=== PATIENT | male | born 1990 | race Caucasian/White ===

== ENCOUNTER 2017-02-09 12:53 | Emergency (ER) | payer OTHER ==
[2017-02-09] MEDS ORDERED: CYCLOBENZAPRINE 10 MG TABLET PO STA (13:16)
[2017-02-09] MEDS ORDERED: KETOROLAC 60 MG/2 ML VIAL IM STA (13:16)
[2017-02-09] MEDS ORDERED: DEXAMETHASONE 10 MG/ML VIAL PO STA (13:16)
[2017-02-09] MEDS ORDERED: CYCLOBENZAPRINE 10 MG TABLET PO ONE (13:20)
[2017-02-09] MEDS ORDERED: CHERRY SYRUP 10 ML UDC PO ONE (13:21)
[2017-02-09] MEDS ORDERED: KETOROLAC 60 MG/2 ML VIAL ONE (13:21)
[2017-02-09] MEDS ORDERED: DEXAMETHASONE 10 MG/ML VIAL ONE (13:21)
--- NOTE | 2017-02-09 13:21 | ED Physician Documentation ---
PD HPI BACK PAIN - Stated complaint Stated Complaint: LOWER BACK PX - Chief complaint Chief Complaint: Back Pain - History obtained from History obtained from: Patient - History of Present Illness Timing - onset: Today Timing - duration: Hours (1) Timing - details: Abrupt onset Pain level max: 8 Pain level now: 7 Location: Lower, Left Quality: Pain, Spasm, Sharp, Similar to prior episodes Associated symptoms: No: Fever, Weakness, Numbness, Incontinent of urine, Unable to urinate, Hematuria, Incontinent of stool Improves with: Rest Worsened by: Movement Contributing factors: Lifting (weighted squats at the gym) Similar symptoms before: Diagnosis (bulging discs in his back) Recently seen: Not recently seen Review of Systems Constitutional: denies: Fever, Chills Nose: denies: Rhinorrhea / runny nose, Congestion Respiratory: denies: Cough GI: denies: Abdominal Pain, Nausea, Vomiting, Diarrhea Skin: denies: Rash Musculoskeletal: denies: Neck pain Neurologic: denies: Focal weakness, Numbness, Confused, Altered mental status, Headache PD PAST MEDICAL HISTORY - Past Medical History Past Medical History: Yes Musculoskeletal: Chronic back pain - Past Surgical History Past Surgical History: Yes - Present Medications Home Medications: Ambulatory Orders Medication Instructions Recorded Confirmed Cyclobenzaprine [Flexeril] 10 mg PO TID PRN #20 tablet 02/09/17 Ibuprofen [Motrin] 800 mg PO Q8H PRN #30 tablet 02/09/17 - Allergies Allergies/Adverse Reactions: Allergies Allergy/AdvReac Type Severity Reaction Status Date / Time No Known Drug Allergies Allergy Verified 02/09/17 13:04 - Social History Does the pt smoke?: Yes Smoking Status: Current every day smoker Does the pt drink ETOH?: Yes Does the pt have substance abuse?: No - Immunizations Immunizations are current?: Yes - POLST Patient has POLST: No PD ED PE NORMAL - Vitals Vital signs reviewed: Yes - General General: Alert and oriented X 3, No acute distress - HEENT HEENT: Moist mucous membranes - Neck Neck: Supple, no meningeal sign - Cardiac Cardiac: RRR - Respiratory Respiratory: No respiratory distress, Clear bilaterally - Back Back: Other (No midline tenderness to palpation or percussion over the entire spine. Paraspinal muscle spasm left greater than right, low lumbar.) - Derm Derm: Warm and dry - Extremities Extremities: Other (normal bilateral lower extremity patellar and ankle jerk reflexes. Normal great toe extension bilaterally) - Neuro Neuro: Alert and oriented X 3, No motor deficit, No sensory deficit - Psych Psych: Normal mood, Normal affect Results - Vitals Vitals: Vital Signs - 24 hr 02/09/17 12:55 Temperature 36.7 C Heart Rate 83 Respiratory 18 Rate Blood Pressure 119/64 O2 Saturation 98 Oxygen O2 Source Room air PD MEDICAL DECISION MAKING - ED course Complexity details: re-evaluated patient, considered differential (no cauda equina, no spinal epidural abscess, no fracture, no aortic dissection or evidence of aneursym rupture), d/w patient ED course: Patient is a 27-year-old male who presents to the emergency department with acute on chronic back pain. Given Toradol, Decadron, Flexeril. Pain improved will place on Flexeril and Motrin for home. He is well-appearing, nontoxic. Afebrile. No evidence of fracture, cauda equina, epidural abscess. Patient counseled regarding signs and symptoms for which I believe and urgent re- evaluation would be necessary. Patient with good understanding of and agreement to plan and is comfortable going home at this time This document was made in part using voice recognition software. While efforts are made to proofread this document, sound alike and grammatical errors may occur. Departure - Departure Disposition: 01 Home, Self Care Clinical Impression: Back strain Qualifiers: Encounter type: initial encounter Qualified Code(s): S39.012A - Strain of muscle, fascia and tendon of lower back, initial encounter Condition: Good Instructions: ED Back Care Tips, ED Low Back Pain Injury Follow-Up: your,doctor in 1 week [Other] Prescriptions: Cyclobenzaprine [Flexeril] 10 mg PO TID PRN #20 tablet PRN Reason: Spasms Ibuprofen [Motrin] 800 mg PO Q8H PRN #30 tablet PRN Reason: PAIN &/OR FEVER Comments: This should improve over the next few days to weeks. Follow-up with your doctor for repeat evaluation and further care. Do not drive or operate heavy machinery while taking the Flexeril.
[2017-02-09 14:14] VITALS: BP 110/67
== END 2017-02-09 14:12 | disposition home or self-care (01) ==
LOC: ED 12:53
DX: S39.012A Strain of muscle, fascia and tendon of lower back, initial encounter (principal); X50.1XXA Overexertion from prolonged static or awkward postures, initial encounter; Y93.B3 Activity, free weights; G89.29 Other chronic pain; F17.200 Nicotine dependence, unspecified, uncomplicated
CPT/HCPCS: 96372; 99283; A9270